=== PATIENT | male | born 1975 | race Hispanic/Latino ===

== ENCOUNTER 2017-04-19 20:47 | Emergency (ER) | payer BC ==
[2017-04-19 21:53] VITALS: BP 137/84; TEMP 98.5
--- NOTE | 2017-04-19 23:55 | C.PDOC ---
History Of Present Illness 42 year old male presents to the ED with laceration to left second finger sustained while cleaning a knife at home just prior to arrival. Patient denies weakness or numbness. Time Seen by Provider: 04/19/17 21:55 Chief Complaint (Nursing): Upper Extremity Problem/Injury History Per: Patient History/Exam Limitations: no limitations Onset/Duration Of Symptoms: Hrs Current Symptoms Are (Timing): Still Present Recent travel outside of the [place]: No Past Medical History Reviewed: Historical Data, Nursing Documentation, Vital Signs Vital Signs: Last Vital Signs Temp 98.5 F 04/19/17 21:50 Pulse 78 04/20/17 00:10 Resp 18 04/20/17 00:10 BP 137/84 04/19/17 21:50 Pulse Ox 96 04/21/17 05:25 - Medical History PMH: HTN Family History: States: Unknown Family Hx - Social History Hx Alcohol Use: No Hx Substance Use: No - Immunization History Hx Tetanus Toxoid Vaccination: No Hx Influenza Vaccination: No Hx Pneumococcal Vaccination: No Review Of Systems Constitutional: Negative for: Fever Gastrointestinal: Negative for: Nausea, Vomiting Skin: Positive for: Other (laceration to left second finger ) Neurological: Negative for: Weakness, Numbness Physical Exam - Physical Exam Appears: Non-toxic, No Acute Distress Skin: Warm, Dry, Other (2 cm superficial laceration to left second PIP joint. No visualized tendon laceration. ) Head: Atraumatic, Normacephalic Eye(s): bilateral: Normal Inspection, PERRL Extremity: No Normal ROM (decreased ROM on extension, flexion normal of the left second PIP. ), Capillary Refill (good capillary refill, less than 2 seconds ), No Deformity, No Swelling Extremity: Bilateral: Normal Color And Temperature Pulses: Left Radial: Normal, Right Radial: Normal Neurological/Psych: Oriented x3, Normal Motor, Normal Sensation ED Course And Treatment O2 Sat by Pulse Oximetry: 96 (RA) Progress Note: Finger splint applied. - Physician Consult Information Time Consulting Physician Contacted: 22:50 Physician Contacted: Liset Mcintyre Outcome Of Conversation: Case discussed with Dr. Mcintyre who advised good irrigation, superfical sutures, application of finger splint, and recommended antibiotics( keflex) be prescribed at discharge. Laceration - Laceration Repair Left 2nd finger Wound Length (In cm): 2 cm Description Of Wound: Linear Wound Cleansed With: Betadine, Sterile Saline Anesthesia: Lidocaine 2%, With Epi Wound Examination: Irrigated With Saline, No FB With Wound Exploration, No Tendon Injury With Wound Exploration Wound Debridement/Revision: Wound Debrided, Wound Margins Revised Wound Closure: Suture (3) Suture Technique And Material Used: Running, Nylon (4-0 Nylon ) Wound Complexity: Simple (well tolerated by pt and finger splint applied and dressed) Disposition Counseled Patient/Family Regarding: Diagnosis, Need For Followup, Rx Given - Disposition Referrals: Liset Mcintyre MD [Staff Provider] - Disposition: HOME/ ROUTINE Disposition Time: 23:52 Condition: STABLE Additional Instructions: Please follow up with Dr Mcintyre- Call tomorrow for appointment Take meds as directed Tylenol or advil for pain Return to ER if worse Prescriptions: Cephalexin [Keflex] 500 mg PO Q6 #28 capsule Instructions: Finger Laceration (ED) Forms: [facility] ([place]) - Clinical Impression Clinical Impression: Finger laceration - Scribe Statement The provider has reviewed the documentation as recorded by the Scribizabel Sheridan All medical record entries made by the Scribe were at my direction and personally dictated by me. I have reviewed the chart and agree that the record accurately reflects my personal performance of the history, physical exam, medical decision making, and the department course for this patient. I have also personally directed, reviewed, and agree with the discharge instructions and disposition.
[2017-04-20 00:11] VITALS: PULSE 78; RESP 18
[2017-04-20 03:07] VITALS: O2SAT 96
== END 2017-04-20 00:10 | disposition home or self-care (01) ==
LOC: C.ER 20:47
DX: S61.211A Laceration without foreign body of left index finger without damage to nail, initial encounter (principal); W26.0XXA Contact with knife, initial encounter; Y93.89 Activity, other specified; Y92.008 Other place in unspecified non-institutional (private) residence as the place of occurrence of the external cause